=== PATIENT | female | born 1965 | race Caucasian/White ===

== ENCOUNTER 2016-04-02 18:59 | Emergency (ER) | payer MEDICAID ==
[~2016-04-02] VITALS: Ht 154.9 cm; Wt 50.0 kg
[~2016-04-02 18:59] MED LIST: ASPI81TA3 PO; METF500T4 PO
[2016-04-02 19:26] VITALS: Ht 154.9 cm; Wt 50.0 kg
[2016-04-02] MEDS ORDERED: ONDANSETRON 4 MG INJ IV STA (20:36)
[2016-04-02] MEDS ORDERED: morphine 4 MG/ML VIAL IV STA (20:36)
[2016-04-02] MEDS ORDERED: SOD CHLORIDE 0.9% 1,000 ML IV STA ×2 (20:36→21:34)
[2016-04-02 21:17] LABS: ADD UMIC NO; URINE BILIRUBIN (Dip) NEGATIVE (NEGATIVE); URINE BLOOD (Dip) NEGATIVE (NEGATIVE); URINE COLOR LT. YELLOW (YELLOW); URINE GLUCOSE (Dip) >=1000 % (NEGATIVE); URINE KETONES (Dip) NEGATIVE (NEGATIVE); URINE LEUKOCYTE ESTERASE (Dip) NEGATIVE (NEGATIVE); URINE NITRITE (Dip) NEGATIVE (NEGATIVE); URINE TOTAL PROTEIN (Dip) NEGATIVE (NEGATIVE); URINE UROBILINOGEN (Dip) 0.2 E.U./dL (0.1-1.0)
[2016-04-02 21:25] LABS: ALBUMIN 3.9 g/dl (3.3-4.9)
[2016-04-02 21:26] LABS: POTASSIUM 3.8 mmol/L (3.5-5.1)
[2016-04-02 21:28] LABS: ALBUMIN/GLOBULIN RATIO 1.11; BASOPHILS % 0.5 % (0.0-2.0); BILIRUBIN,INDIRECT 0.4 mg/dl (0-1.1); BILIRUBIN,TOTAL 0.4 mg/dl (0.2-1.3); CALCIUM 9.2 mg/dl (8.4-10.2); CREATININE 0.54 mg/dl (0.44-1.00); EOSINOPHILS # 0.1 10^3/ul (0.0-0.5); EOSINOPHILS % 0.8 % (0.0-7.0); HEMOGLOBIN 13.8 g/dl (12.0-16.0); LYMPHOCYTES # 2.1 10^3/ul (0.8-2.9); LYMPHOCYTES % 31.8 % (15.0-51.0); MEAN CORPUSCULAR HEMOGLOBIN 28.7 pg (29.0-33.0); MEAN CORPUSCULAR HGB CONC 33.6 g/dl (32.0-37.0); MEAN CORPUSCULAR VOLUME 85.4 fl (82.0-101.0); MEAN PLATELET VOLUME 9.9 fl (7.4-10.4); MONOCYTE # 0.5 10^3/ul (0.3-0.9); MONOCYTES % 7.9 % (0.0-11.0); PLATELET COUNT 235 10^3/UL (140-440); RED BLOOD COUNT 4.81 10^6/ul (4.20-5.40); RED CELL DISTRIBUTION WIDTH 12.4 % (11.5-14.5); TOTAL PROTEIN 7.4 g/dl (6.1-8.1); UNCORRECTED WBC 6.7 10^3/ul (4.8-10.8); WHITE BLOOD COUNT 6.7 10^3/ul (4.8-10.8)
[2016-04-02 21:32] LABS: CONDITION 1
--- NOTE | 2016-04-02 21:41 | RADRPT ---
PROCEDURE: US Abdomen. CLINICAL INDICATION: abdominal pain TECHNIQUE: Multiple real-time images were acquired of the patient's right upper quadrant abdomen a nd retroperitoneum utilizing a high resolution transducer. COMPARISON: None FINDINGS: Limited study due to overlying bowel gas. The liver demonstrates normal echogenicity. The liver is normal in size and no focal solid lesions are seen. The liver measures 14.2 cm in length. The portal vein is patent with normal direction of f low. No intrahepatic biliary dilatation is seen. Multiple calcified gallstones are identified within the gallbladder. There is no pericholecystic fl uid or gallbladder wall thickening. The common bile duct measures 3 mm in maximal dimension. The visualized portions of the pancreas are unremarkable. The tail of the pancreas is not seen. No free fluid is identified. The right kidney is normal in size, and demonstrate normal echogenicity and cortical thickness. The right kidney measures 9.4 cm in long dimension. There is no evidence of hydronephrosis. There are no kidney stones. RPTAT: AA IMPRESSION: Cholelithiasis. No evidence of gallbladder wall thickening or pericholecystic fluid. .Trey Martínez MD, MD Date Time Electronically viewed and signed by .Trey Martínez MD, MD on 04/02/2016 21:41 .S/
[2016-04-02] MEDS ORDERED: metFORMIN 500 MG TAB PO ONE (22:00)
--- NOTE | 2016-04-02 22:02 | ERD ---
ER Documentation Chief Complaint Date/Time DATE: 04/02/16 TIME: 22:01 Chief Complaint AP since last night, RUQ pain. HPI This is a 50-year-old female presenting to the emergency room with a history of diabetes type 2 presenting to the ER complaining of right upper quadrant abdominal pain since last night. Patient rates the pain 9 out of 10, but states that it is worse with after eating. Patient states that she took Motrin at 4 PM without any relief. Admits to having nausea. Denies any vomiting. Denies diarrhea, fever. Patient states that she has not taken her diabetes medication for the past month ROS All systems reviewed and are negative except as per history of present illness. Medications Home Meds Active Scripts Ondansetron (Ondansetron Odt) 4 Mg Tab.rapdis, 4 MG PO Q6H Y for NAUSEA AND/OR VOMITING, #10 TAB Prov:HUMAIRA HOBSON PA-C 04/02/16 Naproxen* (Naprosyn*) 500 Mg Tablet, 500 MG PO BID Y for PAIN AND/OR INFLAMMATION, #30 TAB Prov:HUMAIRA HOBSON PA-C 04/02/16 Metformin* (Glucophage*) 500 Mg Tab, 500 MG PO BID, #30 TAB Prov:HUMAIRA HOBSON PA-C 04/02/16 Metformin* (Glucophage*) 500 Mg Tab, 500 MG PO BID, #60 TAB Prov:RHINA COLON MD 06/17/15 Reported Medications Aspirin* (Aspirin* Chew) 81 Mg Tab.chew, 81 MG PO DAILY, TAB.CHEW 06/17/15 Metformin* (Glucophage*) 500 Mg Tab, 500 MG PO BID, #30 TAB 06/17/15 Allergies Allergies: Coded Allergies: No Known Allergy (Unverified , 04/24/14) PMhx/Soc Medical and Surgical Hx: pt denies Medical Hx, pt denies Surgical Hx History of Surgery: No Anesthesia Reaction: No Hx Neurological Disorder: No Hx Respiratory Disorders: No Hx Cardiac Disorders: No Hx Psychiatric Problems: No Hx Miscellaneous Medical Probl: Yes (DMII) Hx Alcohol Use: No Hx Substance Use: No Hx Tobacco Use: No Smoking Status: Never smoker Physical Exam Vitals Vital Signs Date Time Temp Pulse Resp B/P Pulse Ox O2 Delivery O2 Flow Rate FiO2 1/18/17 19:26 98.1 81 14 129/62 98 Physical Exam GENERAL: well-developed/well-nourished, in no apparent distress, non-toxic appearing HENT: NC/AT, moist mucous membranes EYES: Conjunctiva normal NECK: Supple, no lymphadenopathy PULM: CTA bilaterally, no rales, rhonchi, or wheezing heard CV: Normal S1S2, RRR, good capillary refill GI: Soft, non-distended, tender to palpation in the right upper quadrant Normal bowel sounds, no masses or organomegaly felt on exam No gross peritonitis, no bruits Negative Rovsing, negative Wilhelm, negative McBurney's point, Negative CVAT BACK: No masses EXT: No clubbing, cyanosis, or edema NEURO: Alert and Orientated SKIN: Intact, normal turgor PSYCH: Normal mood and mentation Result Diagram: 04/02/16204904/02/162049 Results 24 hrs Laboratory Tests Test 04/02/16 20:50 04/02/16 22:53 Alanine Aminotransferase (ALT/SGPT) 27IU/L Albumin 3.9g/dl Albumin/Globulin Ratio 1.11 Alkaline Phosphatase 104IU/L Anion Gap 15 Aspartate Amino Transf (AST/SGOT) 19IU/L Basophils # 0.010^3/ul Basophils % 0.5% Blood Morphology Comment Blood Urea Nitrogen 18mg/dl Calcium Level 9.2mg/dl Carbon Dioxide Level 29mmol/L Chloride Level 100mmol/L Creatinine 0.54mg/dl Direct Bilirubin 0.00mg/dl Eosinophils # 0.110^3/ul Eosinophils % 0.8% Globulin 3.50g/dl Glucose Level 350mg/dl Hematocrit 41.0% Hemoglobin 13.8g/dl Indirect Bilirubin 0.4mg/dl Lipase 273U/L Lymphocytes # 2.110^3/ul Lymphocytes % 31.8% Mean Corpuscular Hemoglobin 28.7pg Mean Corpuscular Hemoglobin Concent 33.6g/dl Mean Corpuscular Volume 85.4fl Mean Platelet Volume 9.9fl Monocytes # 0.510^3/ul Monocytes % 7.9% Neutrophils # 4.010^3/ul Neutrophils % 59.0% Nucleated Red Blood Cells # 0.010^3/ul Nucleated Red Blood Cells % 0.0/100WBC Platelet Count 62756^3/UL Potassium Level 3.8mmol/L Red Blood Count 4.8110^6/ul Red Cell Distribution Width 12.4% Sodium Level 140mmol/L Total Bilirubin 0.4mg/dl Total Protein 7.4g/dl Urine Bilirubin NEGATIVE Urine Clarity CLEAR Urine Color LT. YELLOW Urine Glucose >=1000% Urine Hemoglobin NEGATIVE Urine Ketones NEGATIVE Urine Leukocyte Esterase NEGATIVE Urine Nitrite NEGATIVE Urine Specific [place] 1.010 Urine Total Protein NEGATIVE Urine Urobilinogen 0.2 E.U./dL Urine pH 6.5 White Blood Count 6.710^3/ul Bedside Glucose 228mg/dL Current Medications Medications (Trade) Dose Ordered Sig/Amina Route PRN Reason Start Time Stop Time Status Last Admin Dose Admin Sodium Chloride (NS) 1,000 ml @ 1,000 mls/hr Q1H STAT IV 04/02/16 20:36 04/02/16 21:35 DC 04/02/16 20:54 Morphine Sulfate (morphine) 4 mg ONCE STAT IV 04/02/16 20:36 04/02/16 20:37 DC 04/02/16 20:54 Ondansetron HCl 4 mg 4 mg ONCE STAT IV 04/02/16 20:36 04/02/16 20:37 DC 04/02/16 20:54 Sodium Chloride (NS) 1,000 ml @ 1,000 mls/hr Q1H STAT IV 04/02/16 21:34 04/02/16 22:33 DC 04/02/16 21:51 Metformin HCl (Glucophage) 500 mg ONCE ONCE PO 04/02/16 22:00 04/02/16 22:01 DC 04/02/16 22:19 Procedures/MDM This is a 50-year-old female presenting to the emergency room with a history of diabetes type 2 complaining of right upper quadrant abdominal pain likely due to cholelithiasis. I doubt patient has sepsis, choledocholithiasis, cholecystitis or cholangitis, pancreatitis or other acute abdomen conditions due to physical examination and diagnostic testing. Patient appears well and nontoxic appearing with stable vital signs. IV access was established. Patient was given morphine and Zofran with improvement. Lab work was drawn. CBC did not show any evidence of leukocytosis or anemia. CMP did not show any evidence of renal, liver abnormalities. Lipase was normal. Patient did have a glucose level of 350. UA did not show any evidence of hemoglobin or urinary tract infection. I doubt DKA or hyperosmolar state. Gallbladder US: Cholelithiasis. No evidence of gallbladder wall thickening or pericholecystic fluid. Patient has not taken her diabetes medication for the past month due to insurance purposes. 2 L of normal saline fluids was given to the patient along with 500 mg of metformin. Glucose went down to 228 at discharge. A prescription for metformin 500 mg twice daily was given to her, patient has an appointment to see her primary care physician on April 23. I discussed to bring her documents with her and get medications for her diabetes. Diagnostic testing and instructions were given to patient. Pain control and antiemetic prescriptions were provided for outpatient self-care. Discussed with patient to follow-up with primary care for GI referral. Precautions were given to return to the ER for fever, intractable pain, increased vomiting, and other worsening signs and symptoms. Patient expressed agreement and understanding of this plan. Departure Diagnosis: Primary Impression: Cholelithiasis Cholelithiasis location: gallbladder Cholecystitis presence: without cholecystitis Biliary obstruction: without biliary obstruction Qualified Code : K80.20 - Calculus of gallbladder without cholecystitis without obstruction Additional Impression: Hyperglycemia Condition: Stable HUMAIRA HOBSON PA-C Apr 02, 2016 22:02
[2016-04-02] MEDS ORDERED: METF500T4 PO (22:17)
[2016-04-02] MEDS ORDERED: NAPR-260 PO (22:17)
[2016-04-02] MEDS ORDERED: ONDA4TAB14 PO (22:23)
[2016-04-02 23:45] VITALS: BP 125/64; PULSE 72; RESP 14; TEMP 98.1
== END 2016-04-02 23:48 | disposition home or self-care (01) ==
LOC: FTE 18:59
DX: K80.20 Calculus of gallbladder without cholecystitis without obstruction (principal); E11.65 Type 2 diabetes mellitus with hyperglycemia; Z79.84 Long term (current) use of oral hypoglycemic drugs; Z79.82 Long term (current) use of aspirin
CPT/HCPCS: 36415; 76705; 80053; 81003; 82962; 83690; 85025; 96361; 96374; 96375; J2270; J2405; J7030; Z7502; Z7610